=== PATIENT | male | born 1955 | race Caucasian/White ===

== ENCOUNTER → 2024-04-02 07:34 | Outpatient (REF) | payer MEDICARE, OTHER, SELFPAY | LOC: MRI 3T 07:34 | PROVIDERS: ATTENDING PHYSICIAN Physician Assistant Medical; FAMILY PHYSICIAN Family Medicine | DX: R42 Dizziness and giddiness (principal); M54.2 Cervicalgia; H53.9 Unspecified visual disturbance | CPT/HCPCS: 70544; 70553; A9575 ==

== ENCOUNTER → 2024-06-24 18:31 | Outpatient (REF) | payer MEDICARE, OTHER, SELFPAY | LOC: MRI 3T 18:31 | PROVIDERS: ATTENDING PHYSICIAN Specialist; FAMILY PHYSICIAN Family Medicine | DX: I77.1 Stricture of artery (principal); I67.0 Dissection of cerebral arteries, nonruptured | CPT/HCPCS: 70547 ==